=== PATIENT | male | born 1980 | race Caucasian/White ===

== ENCOUNTER 2016-12-20 10:23 | Emergency (ER) | payer OTHER ==
--- NOTE | ~2016-12-20 | CR142 ---
[facility] A Service of [facility] & [facility] RADIOLOGY TEXT RESULTS PATIENT: ABUNDIO CATALAN LOCATION: SED : 78 UNIT #: [id number] AGE: [address]: Steven Mayfield MD SEX: M ORDER DR: [id number] [place] [id number] E MR#: [id number] Acc #: [id number] NAME: ABUNDIO CATALAN : 1980 SEX: M STUDY DATE/TIME: 12/20/2016 10:10 UNIT: SED ROOM: STUDY DESCRIPTION: CR Hand Min 3 Views Rt Attending Physician: Steven Mayfield M.D. Ordering Physician: Steven Mayfield M.D. MEDICAL IMAGING REPORT This report is preliminary unless electronic signature is present. EXAM Right hand, 12/20/2016. HISTORY Hand laceration on the dorsal side 9 days ago. Now, patient presents with soft tissue swelling and infection. FINDINGS 3 views of the right hand were obtained. There is extensive soft tissue swelling on the dorsum of the hand, particularly to the ulnar side. No soft tissue gas is seen, and there are no radiopaque foreign bodies. The bony structures are normal. No fracture or osteomyelitis is seen. IMPRESSION Extensive soft tissue swelling on the dorsum of the hand without fracture, osteomyelitis, soft tissue gas, or radiopaque foreign body. Dictated by... Francisco Sadler Jr., M.D. THIS IS AN ELECTRONICALLY VERIFIED REPORT Francisco Sadler Jr., M.D. at 12/20/2016 4:48 PM ZACHARY/timothy TD: 12/20/2016 12:51 JOB #: [id number] MEDICAL IMAGING REPORT Page 1 of 1
[2016-12-20 11:19] LABS: BILIRUBIN,TOTAL 0.2 mg/dL (0.2-2.0); BUN/CREATININE RATIO 17.14; CALCIUM SERUM 8.7 mg/dL (8.4-10.2); CREATININE SERUM 0.7 mg/dL (0.6-1.4); GLOM FILT RATE Estimated 120.6 mL/min (>60); POTASSIUM 3.1 mmol/L (3.5-5.1); PROTEIN TOTAL SERUM 6.7 g/dL (6.0-8.3)
[2016-12-20 11:20] LABS: BASOPHIL% 0.2 % (0-2.5); EOSINOPHIL# 0.1 X10e3 (0-0.7); EOSINOPHIL% 0.6 % (0.0-7.0); HEMATOCRIT 39.4 % (38.0-50.0); HEMOGLOBIN 13.3 gm/dL (13.0-16.0); LYMPHOCYTE# 1.9 X10e3 (1.0-3.5); MEAN CORPUSCULAR HGB CONC 33.7 g/dL (30-36); MEAN PLATELET VOLUME 8.1 FL (6.5-11.5); MONOCYTE% 6.9 % (3.0-12.0); NEUTROPHIL# 10.8 X10e3 (1.5-7.1); NEUTROPHIL% 78.3 % (40-75); PLATELET COUNT 303 X10e3 (140-420); RED BLOOD COUNT 4.42 X10e (3.90-5.60); RED CELL DISTRIBUTION WIDTH 13.7 % (11.0-15.5); WHITE BLOOD COUNT 13.8 X10e3 (4.0-10.5)
[2016-12-20 11:28] LABS: DIFF IND NO
== END 2016-12-20 11:34 ==
LOC: SED 10:23
PROVIDERS: Emergency Medicine
DX: L03.113 Cellulitis of right upper limb (principal); M65.9 Synovitis and tenosynovitis, unspecified
CPT/HCPCS: 36415; 73130; 80053; 85025; 96374; 96375; 99285; J2270; J2405